=== PATIENT | male | born 1955 | race African-American/Black ===

== ENCOUNTER 2017-09-11 08:57 | Emergency (ER) | payer MEDICARE, OTHER ==
[2017-09-11] MEDS: KETOROLAC 15 MG INJ IV (09:54)
[2017-09-11] MEDS: SOD CHLORIDE 0.9% 1,000 ML IV (09:54)
[2017-09-11] MEDS: PROCHLORPERAZINE 10 MG INJ IV (10:07)
[2017-09-11 10:12] LABS: ADD MAN DIFF? NO
[2017-09-11 10:18] LABS: WHITE BLOOD COUNT 14.7 10^3/ul (4.8-10.8)
[2017-09-11 10:18] LABS: BASOPHILS % 0.3 % (0.0-2.0); HEMATOCRIT 51.8 % (42.0-52.0); HEMOGLOBIN 17.5 g/dl (14.0-18.0); LYMPHOCYTES # 0.7 10^3/ul (0.8-2.9); LYMPHOCYTES % 4.5 % (15.0-51.0); MEAN CORPUSCULAR HEMOGLOBIN 28.1 pg (29.0-33.0); MEAN CORPUSCULAR HGB CONC 33.8 g/dl (32.0-37.0); MEAN CORPUSCULAR VOLUME 83.1 fl (82.0-101.0); MEAN PLATELET VOLUME 11.1 fl (7.4-10.4); MONOCYTE # 1.4 10^3/ul (0.3-0.9); MONOCYTES % 9.5 % (0.0-11.0); NEUTROPHIL # 12.5 10^3/ul (1.6-7.5); NEUTROPHILS % 85.2 % (39.0-77.0); PLATELET COUNT 247 10^3/UL (140-415); RED BLOOD COUNT 6.23 10^6/ul (4.70-6.10); RED CELL DISTRIBUTION WIDTH 15.9 % (11.5-14.5)
[2017-09-11 10:42] LABS: ALANINE AMINOTRANSFERASE 18 IU/L (13-69); ALBUMIN 4.9 g/dl (3.3-4.9); ALBUMIN/GLOBULIN RATIO 0.89; ALKALINE PHOSPHATASE 112 IU/L (42-121); ASPARTATE AMINO TRANSFERASE 21 IU/L (15-46); BILIRUBIN,INDIRECT 0.5 mg/dl (0-1.1); BILIRUBIN,TOTAL 0.5 mg/dl (0.2-1.3); BLOOD UREA NITROGEN 21 mg/dl (7-20); CALCIUM 10.8 mg/dl (8.4-10.2); CARBON DIOXIDE 37 mmol/L (21-31); CHLORIDE 90 mmol/L (97-110); CREATININE 1.61 mg/dl (0.61-1.24); GLUCOSE 185 mg/dl (70-220); LIPASE 470 U/L (23-300); SODIUM 146 mmol/L (135-144); TOTAL PROTEIN 10.4 g/dl (6.1-8.1)
[2017-09-11 10:47] LABS: ANION GAP 23 (8-16); POTASSIUM 4.1 mmol/L (3.5-5.1)
[2017-09-11 10:51] LABS: TROPONIN-I < 0.012 ng/ml (0.00-0.12)
== END 2017-09-11 13:01 | disposition home or self-care (01) ==
LOC: E/R 08:57
DX: K80.50 Calculus of bile duct without cholangitis or cholecystitis without obstruction (principal); R06.6 Hiccough; G89.4 Chronic pain syndrome; I10 Essential (primary) hypertension; F17.210 Nicotine dependence, cigarettes, uncomplicated; Z79.82 Long term (current) use of aspirin
CPT/HCPCS: 36415; 80053; 83690; 84484; 85025; 96374; 96375; 99284-25

== ENCOUNTER 2017-09-12 13:21 | Emergency (ER) | payer MEDICARE, OTHER ==
[2017-09-12] MEDS: CHLORPROMAZINE 25 MG INJ IM (15:34)
== END 2017-09-12 16:38 | disposition home or self-care (01) ==
LOC: E/R 13:21
DX: R06.6 Hiccough (principal); R40.2252 Coma scale, best verbal response, oriented, at arrival to emergency department; R40.2142 Coma scale, eyes open, spontaneous, at arrival to emergency department; R40.2362 Coma scale, best motor response, obeys commands, at arrival to emergency department; F17.210 Nicotine dependence, cigarettes, uncomplicated; Z79.82 Long term (current) use of aspirin
CPT/HCPCS: 96372; 99284-25

== ENCOUNTER 2017-10-03 12:27 | Emergency (ER) | payer MEDICARE, OTHER ==
[2017-10-03] MEDS ORDERED: morphine 4 MG/ML VIAL IV (16:12)
[2017-10-03] MEDS: SOD CHLORIDE 0.9% 1,000 ML IV ×2 (16:23→20:31)
[2017-10-03] MEDS: ONDANSETRON 4 MG INJ IV ×2 (16:23→20:28)
[2017-10-03] MEDS: HYDROmorphONE 1 MG/5 ML IV SYRINGE IV ×2 (16:26→20:28)
[2017-10-03 16:32] LABS: ADD MAN DIFF? NO
[2017-10-03 16:35] LABS: WHITE BLOOD COUNT 13.8 10^3/ul (4.8-10.8)
[2017-10-03 16:35] LABS: BASOPHILS % 0.3 % (0.0-2.0); HEMATOCRIT 41.7 % (42.0-52.0); HEMOGLOBIN 13.8 g/dl (14.0-18.0); LYMPHOCYTES % 5.9 % (15.0-51.0); MEAN CORPUSCULAR HGB CONC 33.1 g/dl (32.0-37.0); MEAN CORPUSCULAR VOLUME 84.6 fl (82.0-101.0); MEAN PLATELET VOLUME 10.6 fl (7.4-10.4); MONOCYTE # 0.4 10^3/ul (0.3-0.9); MONOCYTES % 3.2 % (0.0-11.0); NEUTROPHIL # 12.4 10^3/ul (1.6-7.5); PLATELET COUNT 232 10^3/UL (140-415); POSITIVE DIFF @See below; RED BLOOD COUNT 4.93 10^6/ul (4.70-6.10); RED CELL DISTRIBUTION WIDTH 14.2 % (11.5-14.5)
[2017-10-03 16:57] LABS: ALANINE AMINOTRANSFERASE 41 IU/L (13-69); ALBUMIN 3.9 g/dl (3.3-4.9); ALBUMIN/GLOBULIN RATIO 0.86; ALKALINE PHOSPHATASE 208 IU/L (42-121); AMYLASE 70 U/L (11-123); ANION GAP 17 (8-16); ASPARTATE AMINO TRANSFERASE 38 IU/L (15-46); BILIRUBIN,INDIRECT 1.2 mg/dl (0-1.1); BILIRUBIN,TOTAL 1.2 mg/dl (0.2-1.3); BLOOD UREA NITROGEN 18 mg/dl (7-20); CALCIUM 9.4 mg/dl (8.4-10.2); CARBON DIOXIDE 28 mmol/L (21-31); CHLORIDE 96 mmol/L (97-110); CREATININE 1.99 mg/dl (0.61-1.24); GLUCOSE 129 mg/dl (70-220); LIPASE 116 U/L (23-300); POTASSIUM 4.1 mmol/L (3.5-5.1); SODIUM 137 mmol/L (135-144); TOTAL PROTEIN 8.4 g/dl (6.1-8.1)
[2017-10-03 17:07] LABS: PT RATIO 1.2
[2017-10-03] MEDS: CHLORPROMAZINE 25 MG INJ IM (17:07)
[2017-10-03 17:08] LABS: PARTIAL THROMBOPLASTIN TIME 34.4 Sec (25.0-35.0)
[2017-10-03 17:12] LABS: TROPONIN-I < 0.012 ng/ml (0.000-0.120)
[2017-10-03 17:19] LABS: BAND NEUTROPHILS #M 0.6 10^3/ul (0.0-0.6); BAND NEUTROPHILS % (M) 5 % (0-4); LYMPHOCYTES # 0.4 10^3/ul (0.8-2.9); LYMPHOCYTES #M 0.4 10^3/ul (0.8-2.9); LYMPHOCYTES % (M) 3 % (15-51); MONOCYTE #M 0.4 10^3/ul (0.3-0.9); MONOCYTES % (M) 3 % (0-11); SEGMENTED NEUTROPHILS (M) % 89 % (39-77)
[2017-10-03 17:42] LABS: INR 1.16
[2017-10-03 18:42] LABS: ADD UMIC YES; UR ASCORBIC ACID 40 mg/dL (NEGATIVE); UR BILIRUBIN (Dip) NEGATIVE (NEGATIVE); UR BLOOD (Dip) 1+ mg/dL (NEGATIVE); UR CLARITY CLOUDY (CLEAR); UR COLOR AMBER (YELLOW); UR GLUCOSE (Dip) NEGATIVE (NEGATIVE); UR KETONES (Dip) TRACE mg/dL (NEGATIVE); UR LEUKOCYTE ESTERASE (Dip) NEGATIVE Leu/ul (NEGATIVE); UR MUCUS FEW /HPF (NONE SEEN); UR NITRITE (Dip) NEGATIVE (NEGATIVE); UR RBC 17 /HPF (0-5); UR SPECIFIC GRAVITY (Dip) 1.019 (1.003-1.030); UR TOTAL PROTEIN (Dip) 2+ mg/dl (NEGATIVE); UR UROBILINOGEN (Dip) 2+ mg/dL (NEGATIVE); UR WBC 7 /HPF (0-5)
== END 2017-10-03 21:44 | disposition home or self-care (01) ==
LOC: E/R 12:27
DX: R10.13 Epigastric pain (principal); R06.6 Hiccough; F17.210 Nicotine dependence, cigarettes, uncomplicated; Z79.82 Long term (current) use of aspirin
CPT/HCPCS: 36415; 71045; 80053; 81001; 82150; 83690; 84484; 85025; 85610; 85730; 87086; 96372; 96374; 96375; 96376; 99285-25

== ENCOUNTER 2017-10-09 11:58 | Inpatient (IN) | payer MEDICARE, OTHER ==
[2017-10-09] MEDS: FAMOTIDINE 20 MG INJ IV (15:49)
[2017-10-09] MEDS: ONDANSETRON 4 MG INJ IV (15:49)
[2017-10-09] MEDS: morphine 4 MG/ML VIAL IV (15:49)
[2017-10-09 16:31] LABS: ADD MAN DIFF? NO
[2017-10-09 16:35] LABS: ABNORMAL IP MESSAGE 1; BASOPHIL # 0.1 10^3/ul (0.0-0.1); BASOPHILS % 0.5 % (0.0-2.0); EOSINOPHILS # 0.1 10^3/ul (0.0-0.5); EOSINOPHILS % 0.3 % (0.0-7.0); HEMOGLOBIN 11.8 g/dl (14.0-18.0); LYMPHOCYTES # 1.4 10^3/ul (0.8-2.9); LYMPHOCYTES % 5.9 % (15.0-51.0); MEAN CORPUSCULAR HGB CONC 33.7 g/dl (32.0-37.0); MEAN CORPUSCULAR VOLUME 83.1 fl (82.0-101.0); MEAN PLATELET VOLUME 9.4 fl (7.4-10.4); MONOCYTE # 1.7 10^3/ul (0.3-0.9); MONOCYTES % 7.2 % (0.0-11.0); NEUTROPHIL # 19.3 10^3/ul (1.6-7.5); NEUTROPHILS % 83.9 % (39.0-77.0); PLATELET COUNT 401 10^3/UL (140-415); POSITIVE DIFF @See below; RED BLOOD COUNT 4.21 10^6/ul (4.70-6.10); RED CELL DISTRIBUTION WIDTH 14.2 % (11.5-14.5)
[2017-10-09 16:43] LABS: ADD UMIC YES; UR ASCORBIC ACID 40 mg/dL (NEGATIVE); UR BILIRUBIN (Dip) NEGATIVE (NEGATIVE); UR BLOOD (Dip) 2+ mg/dL (NEGATIVE); UR CLARITY CLEAR (CLEAR); UR COLOR YELLOW (YELLOW); UR GLUCOSE (Dip) NEGATIVE (NEGATIVE); UR KETONES (Dip) NEGATIVE (NEGATIVE); UR LEUKOCYTE ESTERASE (Dip) NEGATIVE Leu/ul (NEGATIVE); UR NITRITE (Dip) NEGATIVE (NEGATIVE); UR RBC 21 /HPF (0-5); UR TOTAL PROTEIN (Dip) 2+ mg/dl (NEGATIVE); UR UROBILINOGEN (Dip) NEGATIVE (NEGATIVE); UR WBC 3 /HPF (0-5)
[2017-10-09 16:54] LABS: ALANINE AMINOTRANSFERASE 42 IU/L (13-69); ALBUMIN 3.3 g/dl (3.3-4.9); ALBUMIN/GLOBULIN RATIO 0.73; ALKALINE PHOSPHATASE 239 IU/L (42-121); ANION GAP 15 (8-16); ASPARTATE AMINO TRANSFERASE 28 IU/L (15-46); BILIRUBIN,INDIRECT 0.4 mg/dl (0-1.1); BILIRUBIN,TOTAL 0.4 mg/dl (0.2-1.3); BLOOD UREA NITROGEN 16 mg/dl (7-20); CALCIUM 8.8 mg/dl (8.4-10.2); CARBON DIOXIDE 31 mmol/L (21-31); CHLORIDE 100 mmol/L (97-110); CREATININE 1.47 mg/dl (0.61-1.24); GLUCOSE 122 mg/dl (70-220); LIPASE 400 U/L (23-300); POTASSIUM 3.9 mmol/L (3.5-5.1); SODIUM 142 mmol/L (135-144); TOTAL PROTEIN 7.8 g/dl (6.1-8.1)
[2017-10-09] MEDS: HYDROmorphONE 1 MG/5 ML IV SYRINGE IV (17:59)
[2017-10-09] MEDS: SOD CHLORIDE 0.9% 1,000 ML IV ×3 (18:59→23:47)
[2017-10-09] MEDS: PIPER-TAZO 3.375 GM IV (PMX) 100 ML IVPB (18:59)
[2017-10-09] MEDS ORDERED: ONDANSETRON 4 MG INJ IV (20:00)
[2017-10-09] MEDS ORDERED: ACETAMINOPHEN 325 MG TAB PO (20:00)
[2017-10-09] MEDS: HYDROmorphONE 0.5 MG/0.5 ML SYG IV (21:56)
[2017-10-10] MEDS: HYDROmorphONE 0.5 MG/0.5 ML SYG IV ×5 (02:39→19:55)
[2017-10-10 05:14] LABS: ADD MAN DIFF? NO
[2017-10-10 05:19] LABS: WHITE BLOOD COUNT 22.4 10^3/ul (4.8-10.8)
[2017-10-10 05:19] LABS: BASOPHIL # 0.1 10^3/ul (0.0-0.1); BASOPHILS % 0.6 % (0.0-2.0); EOSINOPHILS # 0.1 10^3/ul (0.0-0.5); EOSINOPHILS % 0.5 % (0.0-7.0); HEMATOCRIT 35.1 % (42.0-52.0); HEMOGLOBIN 11.7 g/dl (14.0-18.0); LYMPHOCYTES # 1.5 10^3/ul (0.8-2.9); LYMPHOCYTES % 6.7 % (15.0-51.0); MEAN CORPUSCULAR HEMOGLOBIN 27.7 pg (29.0-33.0); MEAN CORPUSCULAR HGB CONC 33.3 g/dl (32.0-37.0); MEAN CORPUSCULAR VOLUME 83.2 fl (82.0-101.0); MEAN PLATELET VOLUME 9.9 fl (7.4-10.4); MONOCYTE # 1.4 10^3/ul (0.3-0.9); MONOCYTES % 6.4 % (0.0-11.0); NEUTROPHIL # 18.6 10^3/ul (1.6-7.5); NEUTROPHILS % 83.3 % (39.0-77.0); PLATELET COUNT 423 10^3/UL (140-415); RED BLOOD COUNT 4.22 10^6/ul (4.70-6.10); RED CELL DISTRIBUTION WIDTH 14.5 % (11.5-14.5)
[2017-10-10 05:47] LABS: ANION GAP 16 (8-16); BLOOD UREA NITROGEN 14 mg/dl (7-20); CALCIUM 8.4 mg/dl (8.4-10.2); CARBON DIOXIDE 24 mmol/L (21-31); CHLORIDE 106 mmol/L (97-110); CREATININE 1.38 mg/dl (0.61-1.24); GLUCOSE 93 mg/dl (70-220); POTASSIUM 4.1 mmol/L (3.5-5.1); SODIUM 142 mmol/L (135-144)
[2017-10-10] MEDS: CIPROFLOXACIN 400MG/D5W 200 ML IVPB (11:24)
[2017-10-10 12:47] LABS: CANCER ANTIGEN 19-9 < 1.4 U/ml (0.0-37.0)
[2017-10-10] MEDS: SOD CHLORIDE 0.9% 1,000 ML IV (13:24)
[2017-10-10] MEDS: metroNIDAZOLE 500 MG/NS (PMX) 250 MG in EVAC CONTAINER 1 BOTTLE IVPB ×2 (13:25→21:30)
[2017-10-10 13:53] LABS: CARCINOEMBRYONIC ANTIGEN 1.5 ng/ml (0.0-5.0)
[2017-10-10 13:58] LABS: ALPHA FETOPROTEIN 0.86 IU/L (0.00-7.21)
[2017-10-10] MEDS: MIDAZOLAM 1 MG/ML 2 ML INJ (14:30)
[2017-10-10] MEDS: FENTAnyl 50 MCG/ML VIAL (14:30)
[2017-10-10] MEDS: SOD CHLORIDE 0.9% 500 ML (14:30)
[2017-10-10] MEDS: LIDOCAINE 1% (MDV) 10 ML INJ (14:35)
[2017-10-10] MEDS: HYDROmorphONE 2 MG/ML SYG IV (23:38)
[2017-10-11] MEDS: HYDROmorphONE 2 MG/ML SYG IV ×5 (03:28→19:23)
[2017-10-11] MEDS: SOD CHLORIDE 0.9% 1,000 ML IV ×3 (03:32→16:00)
[2017-10-11] MEDS: metroNIDAZOLE 500 MG/NS (PMX) 250 MG in EVAC CONTAINER 1 BOTTLE IVPB ×3 (06:29→23:54)
[2017-10-11] MEDS: CIPROFLOXACIN 400MG/D5W 200 ML IVPB (10:48)
[2017-10-11 13:59] LABS: ADD MAN DIFF? NO
[2017-10-11 14:06] LABS: BASOPHIL # 0.1 10^3/ul (0.0-0.1); BASOPHILS % 0.6 % (0.0-2.0); EOSINOPHILS # 0.1 10^3/ul (0.0-0.5); EOSINOPHILS % 0.8 % (0.0-7.0); HEMATOCRIT 34.8 % (42.0-52.0); HEMOGLOBIN 11.3 g/dl (14.0-18.0); LYMPHOCYTES # 1.5 10^3/ul (0.8-2.9); LYMPHOCYTES % 11.6 % (15.0-51.0); MEAN CORPUSCULAR HEMOGLOBIN 27.7 pg (29.0-33.0); MEAN CORPUSCULAR HGB CONC 32.5 g/dl (32.0-37.0); MEAN CORPUSCULAR VOLUME 85.3 fl (82.0-101.0); MEAN PLATELET VOLUME 9.4 fl (7.4-10.4); MONOCYTES % 8.2 % (0.0-11.0); NEUTROPHIL # 9.7 10^3/ul (1.6-7.5); NEUTROPHILS % 76.3 % (39.0-77.0); PLATELET COUNT 581 10^3/UL (140-415); RED BLOOD COUNT 4.08 10^6/ul (4.70-6.10); RED CELL DISTRIBUTION WIDTH 15.2 % (11.5-14.5)
[2017-10-11 14:06] LABS: WHITE BLOOD COUNT 12.8 10^3/ul (4.8-10.8)
[2017-10-11 14:24] LABS: LIPASE 177 U/L (23-300)
[2017-10-11 14:26] LABS: ALANINE AMINOTRANSFERASE 34 IU/L (13-69); ALBUMIN 2.9 g/dl (3.3-4.9); ALKALINE PHOSPHATASE 194 IU/L (42-121); ANION GAP 12 (8-16); ASPARTATE AMINO TRANSFERASE 31 IU/L (15-46); BILIRUBIN,INDIRECT 0.2 mg/dl (0-1.1); BILIRUBIN,TOTAL 0.2 mg/dl (0.2-1.3); BLOOD UREA NITROGEN 12 mg/dl (7-20); CALCIUM 8.1 mg/dl (8.4-10.2); CARBON DIOXIDE 24 mmol/L (21-31); CHLORIDE 110 mmol/L (97-110); CREATININE 1.21 mg/dl (0.61-1.24); GLUCOSE 87 mg/dl (70-220); POTASSIUM 4.1 mmol/L (3.5-5.1); SODIUM 142 mmol/L (135-144)
[2017-10-12] MEDS: HYDROmorphONE 2 MG/ML SYG IV ×4 (00:06→12:54)
[2017-10-12] MEDS: SOD CHLORIDE 0.9% 1,000 ML IV ×2 (02:39→21:10)
[2017-10-12] MEDS: ENOXAPARIN 80 MG/0.8 ML SYG SC (02:41)
[2017-10-12 05:24] LABS: ADD MAN DIFF? NO
[2017-10-12 05:27] LABS: WHITE BLOOD COUNT 9.8 10^3/ul (4.8-10.8)
[2017-10-12 05:27] LABS: BASOPHIL # 0.1 10^3/ul (0.0-0.1); BASOPHILS % 0.6 % (0.0-2.0); EOSINOPHILS # 0.1 10^3/ul (0.0-0.5); EOSINOPHILS % 1.1 % (0.0-7.0); HEMATOCRIT 35.6 % (42.0-52.0); HEMOGLOBIN 11.8 g/dl (14.0-18.0); LYMPHOCYTES # 1.3 10^3/ul (0.8-2.9); LYMPHOCYTES % 13.2 % (15.0-51.0); MEAN CORPUSCULAR HEMOGLOBIN 27.7 pg (29.0-33.0); MEAN CORPUSCULAR HGB CONC 33.1 g/dl (32.0-37.0); MEAN CORPUSCULAR VOLUME 83.6 fl (82.0-101.0); MEAN PLATELET VOLUME 9.2 fl (7.4-10.4); MONOCYTE # 0.9 10^3/ul (0.3-0.9); MONOCYTES % 8.7 % (0.0-11.0); NEUTROPHIL # 7.2 10^3/ul (1.6-7.5); NEUTROPHILS % 73.8 % (39.0-77.0); PLATELET COUNT 679 10^3/UL (140-415); RED BLOOD COUNT 4.26 10^6/ul (4.70-6.10); RED CELL DISTRIBUTION WIDTH 14.9 % (11.5-14.5)
[2017-10-12 06:06] LABS: ALANINE AMINOTRANSFERASE 29 IU/L (13-69); ALBUMIN/GLOBULIN RATIO 0.71; ALKALINE PHOSPHATASE 193 IU/L (42-121); AMYLASE 139 U/L (11-123); ANION GAP 11 (8-16); ASPARTATE AMINO TRANSFERASE 25 IU/L (15-46); BILIRUBIN,INDIRECT 0.2 mg/dl (0-1.1); BILIRUBIN,TOTAL 0.2 mg/dl (0.2-1.3); BLOOD UREA NITROGEN 8 mg/dl (7-20); CALCIUM 8.2 mg/dl (8.4-10.2); CARBON DIOXIDE 28 mmol/L (21-31); CHLORIDE 108 mmol/L (97-110); CREATININE 1.06 mg/dl (0.61-1.24); GLUCOSE 137 mg/dl (70-220); LIPASE 481 U/L (23-300); SODIUM 143 mmol/L (135-144); TOTAL PROTEIN 7.2 g/dl (6.1-8.1)
[2017-10-12] MEDS: metroNIDAZOLE 500 MG/NS (PMX) 250 MG in EVAC CONTAINER 1 BOTTLE IVPB ×3 (06:26→22:14)
[2017-10-12] MEDS: CIPROFLOXACIN 400MG/D5W 200 ML IVPB (11:34)
[2017-10-12] MEDS ORDERED: IOHEXOL 14.3 MG(I)/ML (ADULT) BTL PO (13:30)
[2017-10-12] MEDS ORDERED: HYDROCODONE/APAP (5/325) TAB PO (13:30)
[2017-10-12] MEDS: HYDROCODONE/APAP (5/325) TAB PO ×2 (15:12→21:08)
[2017-10-12] MEDS: HYDROmorphONE 0.5 MG/0.5 ML SYG IV ×2 (17:30→22:13)
[2017-10-13] MEDS: ENOXAPARIN 80 MG/0.8 ML SYG SC (01:14)
[2017-10-13] MEDS: HYDROCODONE/APAP (5/325) TAB PO ×3 (03:04→15:45)
[2017-10-13] MEDS: ONDANSETRON 4 MG INJ IV ×2 (03:12→11:06)
[2017-10-13] MEDS: HYDROmorphONE 0.5 MG/0.5 ML SYG IV ×2 (04:27→10:07)
[2017-10-13] MEDS: metroNIDAZOLE 500 MG/NS (PMX) 250 MG in EVAC CONTAINER 1 BOTTLE IVPB (05:24)
[2017-10-13 05:48] LABS: ADD MAN DIFF? NO
[2017-10-13] MEDS: SOD CHLORIDE 0.9% 1,000 ML IV ×2 (06:00→09:34)
[2017-10-13 06:06] LABS: BASOPHIL # 0.1 10^3/ul (0.0-0.1); BASOPHILS % 0.7 % (0.0-2.0); EOSINOPHILS # 0.1 10^3/ul (0.0-0.5); EOSINOPHILS % 0.9 % (0.0-7.0); HEMATOCRIT 33.8 % (42.0-52.0); HEMOGLOBIN 11.1 g/dl (14.0-18.0); LYMPHOCYTES # 1.2 10^3/ul (0.8-2.9); LYMPHOCYTES % 15.7 % (15.0-51.0); MEAN CORPUSCULAR HEMOGLOBIN 27.4 pg (29.0-33.0); MEAN CORPUSCULAR HGB CONC 32.8 g/dl (32.0-37.0); MEAN CORPUSCULAR VOLUME 83.5 fl (82.0-101.0); MEAN PLATELET VOLUME 9.5 fl (7.4-10.4); MONOCYTE # 0.7 10^3/ul (0.3-0.9); MONOCYTES % 8.8 % (0.0-11.0); NEUTROPHIL # 5.3 10^3/ul (1.6-7.5); NEUTROPHILS % 71.5 % (39.0-77.0); PLATELET COUNT 699 10^3/UL (140-415); RED BLOOD COUNT 4.05 10^6/ul (4.70-6.10)
[2017-10-13 06:06] LABS: WHITE BLOOD COUNT 7.4 10^3/ul (4.8-10.8)
[2017-10-13 06:27] LABS: ALANINE AMINOTRANSFERASE 24 IU/L (13-69); ALBUMIN 2.4 g/dl (3.3-4.9); ALBUMIN/GLOBULIN RATIO 0.63; ALKALINE PHOSPHATASE 144 IU/L (42-121); ANION GAP 11 (8-16); ASPARTATE AMINO TRANSFERASE 37 IU/L (15-46); BILIRUBIN,INDIRECT 0.2 mg/dl (0-1.1); BILIRUBIN,TOTAL 0.2 mg/dl (0.2-1.3); BLOOD UREA NITROGEN 3 mg/dl (7-20); CALCIUM 7.7 mg/dl (8.4-10.2); CARBON DIOXIDE 27 mmol/L (21-31); CHLORIDE 109 mmol/L (97-110); CREATININE 0.94 mg/dl (0.61-1.24); GLUCOSE 105 mg/dl (70-220); LIPASE 379 U/L (23-300); POTASSIUM 3.7 mmol/L (3.5-5.1); SODIUM 143 mmol/L (135-144); TOTAL PROTEIN 6.2 g/dl (6.1-8.1)
[2017-10-13 06:33] LABS: AMYLASE 92 U/L (11-123)
[2017-10-13 07:21] LABS: ERYTHROCYTE SEDIMENTATION RATE 46 mm/Hr (0-20)
[2017-10-13] MEDS: SOD CHLORIDE 0.9% 100 ML (08:51)
[2017-10-13] MEDS: IOHEXOL 300MG/ML 150 ML BTL (08:53)
[2017-10-13] MEDS ORDERED: IOHEXOL 14.3 MG(I)/ML (ADULT) BTL PO (09:00)
[2017-10-13] MEDS: CIPROFLOXACIN 400MG/D5W 200 ML IVPB (11:00)
[2017-10-13] MEDS: D5-NS + KCL 20 MEQ 1,000 ML IV ×2 (11:01→20:00)
[2017-10-13] MEDS: CALCIUM GLUCONATE 10% 2 GM in DEXTROSE 5% 100 ML IVPB (11:30)
[2017-10-13] MEDS: LIDOCAINE 1% (MPF) 5 ML VIAL SC (14:30)
[2017-10-13] MEDS ORDERED: HYDROmorphONE 0.5 MG/0.5 ML SYG IV (15:30)
[2017-10-13] MEDS: HYDROmorphONE 2 MG TAB PO (20:14)
[2017-10-13] MEDS: metroNIDAZOLE 500 MG TAB PO (21:52)
[2017-10-14] MEDS: HYDROCODONE/APAP (5/325) TAB PO (00:02)
[2017-10-14] MEDS: PANTOPRAZOLE 40 MG INJ IV (05:32)
[2017-10-14] MEDS: D5-NS + KCL 20 MEQ 1,000 ML IV ×2 (06:00→16:00)
[2017-10-14] MEDS: metroNIDAZOLE 500 MG TAB PO (06:06)
[2017-10-14 07:31] LABS: ADD UMIC YES; UR ASCORBIC ACID NEGATIVE (NEGATIVE); UR BACTERIA FEW /HPF (NONE SEEN); UR BILIRUBIN (Dip) NEGATIVE (NEGATIVE); UR BLOOD (Dip) 1+ mg/dL (NEGATIVE); UR CLARITY CLEAR (CLEAR); UR COLOR YELLOW (YELLOW); UR GLUCOSE (Dip) NEGATIVE (NEGATIVE); UR KETONES (Dip) TRACE mg/dL (NEGATIVE); UR LEUKOCYTE ESTERASE (Dip) NEGATIVE Leu/ul (NEGATIVE); UR NITRITE (Dip) NEGATIVE (NEGATIVE); UR RBC 4 /HPF (0-5); UR SPECIFIC GRAVITY (Dip) 1.013 (1.003-1.030); UR TOTAL PROTEIN (Dip) NEGATIVE (NEGATIVE); UR UROBILINOGEN (Dip) NEGATIVE (NEGATIVE); UR WBC 3 /HPF (0-5)
[2017-10-14] MEDS: ENOXAPARIN 80 MG/0.8 ML SYG SC (07:42)
[2017-10-14] MEDS: HYDROmorphONE 2 MG/ML SYG IV ×3 (11:26→18:32)
[2017-10-14] MEDS: CIPROFLOXACIN 400MG/D5W 200 ML IVPB (12:05)
[2017-10-14] MEDS: ONDANSETRON 4 MG INJ IV (12:12)
[2017-10-14] MEDS: metroNIDAZOLE 500 MG/NS (PMX) 250 MG in EVAC CONTAINER 1 BOTTLE IVPB ×3 (16:32→22:34)
[2017-10-14] MEDS: CALCIUM GLUCONATE 10% 2 GM in DEXTROSE 5% 100 ML IVPB (18:32)
[2017-10-14 19:03] LABS: WHITE BLOOD COUNT 10.8 10^3/ul (4.8-10.8)
[2017-10-14 19:03] LABS: HEMATOCRIT 34.5 % (42.0-52.0); HEMOGLOBIN 11.6 g/dl (14.0-18.0); MEAN CORPUSCULAR HEMOGLOBIN 27.6 pg (29.0-33.0); MEAN CORPUSCULAR HGB CONC 33.6 g/dl (32.0-37.0); MEAN CORPUSCULAR VOLUME 82.1 fl (82.0-101.0); MEAN PLATELET VOLUME 9.1 fl (7.4-10.4); PLATELET COUNT 821 10^3/UL (140-415); RED CELL DISTRIBUTION WIDTH 15.3 % (11.5-14.5)
[2017-10-14 19:11] LABS: ADD MAN DIFF? YES
[2017-10-14 19:25] LABS: AMYLASE 85 U/L (11-123)
[2017-10-14 19:25] LABS: ANION GAP 13 (8-16); BLOOD UREA NITROGEN 2 mg/dl (7-20); CALCIUM 8.3 mg/dl (8.4-10.2); CARBON DIOXIDE 29 mmol/L (21-31); CHLORIDE 103 mmol/L (97-110); CREATININE 0.99 mg/dl (0.61-1.24); GLUCOSE 108 mg/dl (70-220); LIPASE 165 U/L (23-300); POTASSIUM 3.2 mmol/L (3.5-5.1); SODIUM 142 mmol/L (135-144)
[2017-10-14 19:57] LABS: BURR CELLS 1+ (0-0); GIANT THROMBO% (M) 2 % (0-0); LYMPHOCYTES #M 0.5 10^3/ul (0.8-2.9); LYMPHOCYTES % (M) 5 % (15-51); MONOCYTE #M 0.5 10^3/ul (0.3-0.9); MONOCYTES % (M) 5 % (0-11); PLATELET ESTIMATE INCREASED; POIKILOCYTOSIS 1+ (0-0); POLYCHROMASIA 3+ (0-0); SEGMENTED NEUTROPHILS (M) % 90 % (39-77); SMUDGE%M 2 % (0-0)
[2017-10-14] MEDS: HYDROmorphONE 1 MG/ML SYG IV (22:31)
[2017-10-15] MEDS: ONDANSETRON 4 MG INJ IV (00:14)
[2017-10-15] MEDS: HYDROmorphONE 1 MG/ML SYG IV ×5 (03:42→20:56)
[2017-10-15] MEDS: PANTOPRAZOLE 40 MG INJ IV (05:28)
[2017-10-15] MEDS: D5-NS + KCL 20 MEQ 1,000 ML IV ×3 (05:29→19:26)
[2017-10-15] MEDS: metroNIDAZOLE 500 MG/NS (PMX) 250 MG in EVAC CONTAINER 1 BOTTLE IVPB ×2 (05:29→14:44)
[2017-10-15] MEDS: TAMSULOSIN (SR) 0.4 MG CAP PO ×2 (05:32→20:55)
[2017-10-15] MEDS: ENOXAPARIN 80 MG/0.8 ML SYG SC ×2 (09:00→10:29)
[2017-10-15] MEDS: DIATR MEGLU/DIATRIZOATE SODIUM 120 ML BTL (10:57)
[2017-10-15] MEDS: CIPROFLOXACIN 400MG/D5W 200 ML IVPB (12:12)
[2017-10-15] MEDS: POTASSIUM CHLORIDE (SR) 20 MEQ TAB PO (16:28)
[2017-10-15] MEDS: METOPROLOL (XL) 25 MG TAB PO (16:29)
[2017-10-15] MEDS: CALCIUM CARBONATE 750 MG CHEW TAB PO (18:55)
[2017-10-16] MEDS: HYDROmorphONE 1 MG/ML SYG IV ×6 (00:37→22:14)
[2017-10-16] MEDS: metroNIDAZOLE 500 MG/NS (PMX) 250 MG in EVAC CONTAINER 1 BOTTLE IVPB ×4 (00:44→21:49)
[2017-10-16] MEDS: PANTOPRAZOLE 40 MG INJ IV (05:42)
[2017-10-16] MEDS: MULTIVITAMINS THERAPEUTIC TAB PO (08:14)
[2017-10-16] MEDS: METOPROLOL (XL) 25 MG TAB PO (08:14)
[2017-10-16] MEDS: CALCIUM CARBONATE 750 MG CHEW TAB PO ×3 (08:50→18:55)
[2017-10-16] MEDS: ENOXAPARIN 80 MG/0.8 ML SYG SC (09:00)
[2017-10-16] MEDS: D5-NS + KCL 20 MEQ 1,000 ML IV ×2 (09:52→22:49)
[2017-10-16] MEDS: CIPROFLOXACIN 400MG/D5W 200 ML IVPB (11:06)
[2017-10-16] MEDS: OXYBUTYNIN 5 MG TAB PO ×2 (11:06→20:43)
[2017-10-16] MEDS: FINASTERIDE 5 MG TAB PO (17:47)
[2017-10-16] MEDS: BUSPIRONE 5 MG TAB PO (20:43)
[2017-10-16] MEDS: DILTIAZEM 30 MG TAB PO (20:43)
[2017-10-17] MEDS: HYDROmorphONE 1 MG/ML SYG IV ×6 (02:23→23:50)
[2017-10-17 05:03] LABS: ADD MAN DIFF? NO
[2017-10-17 05:04] LABS: WHITE BLOOD COUNT 6.6 10^3/ul (4.8-10.8)
[2017-10-17 05:04] LABS: BASOPHILS % 0.5 % (0.0-2.0); EOSINOPHILS # 0.2 10^3/ul (0.0-0.5); EOSINOPHILS % 2.3 % (0.0-7.0); HEMATOCRIT 32.1 % (42.0-52.0); HEMOGLOBIN 10.6 g/dl (14.0-18.0); LYMPHOCYTES # 1.5 10^3/ul (0.8-2.9); LYMPHOCYTES % 21.9 % (15.0-51.0); MEAN CORPUSCULAR HEMOGLOBIN 27.7 pg (29.0-33.0); MEAN CORPUSCULAR VOLUME 83.8 fl (82.0-101.0); MEAN PLATELET VOLUME 9.3 fl (7.4-10.4); MONOCYTES % 14.7 % (0.0-11.0); NEUTROPHIL # 3.9 10^3/ul (1.6-7.5); NEUTROPHILS % 59.4 % (39.0-77.0); PLATELET COUNT 678 10^3/UL (140-415); RED BLOOD COUNT 3.83 10^6/ul (4.70-6.10); RED CELL DISTRIBUTION WIDTH 15.8 % (11.5-14.5)
[2017-10-17 05:25] LABS: ALBUMIN 2.7 g/dl (3.3-4.9); ANION GAP 13 (8-16); CALCIUM 8.6 mg/dl (8.4-10.2); CARBON DIOXIDE 28 mmol/L (21-31); CHLORIDE 111 mmol/L (97-110); CREATININE 0.98 mg/dl (0.61-1.24); GLUCOSE 237 mg/dl (70-220); POTASSIUM 4.7 mmol/L (3.5-5.1); SODIUM 147 mmol/L (135-144)
[2017-10-17 05:36] LABS: BLOOD UREA NITROGEN < 2 mg/dl (7-20)
[2017-10-17] MEDS: PANTOPRAZOLE 40 MG INJ IV (05:51)
[2017-10-17] MEDS: metroNIDAZOLE 500 MG/NS (PMX) 250 MG in EVAC CONTAINER 1 BOTTLE IVPB (05:51)
[2017-10-17] MEDS: BUSPIRONE 5 MG TAB PO ×2 (08:43→21:47)
[2017-10-17] MEDS: OXYBUTYNIN 5 MG TAB PO ×2 (08:43→21:47)
[2017-10-17] MEDS: DILTIAZEM 30 MG TAB PO ×3 (08:44→21:48)
[2017-10-17] MEDS: MULTIVITAMINS THERAPEUTIC TAB PO (08:44)
[2017-10-17] MEDS: FINASTERIDE 5 MG TAB PO (08:44)
[2017-10-17] MEDS: ENOXAPARIN 80 MG/0.8 ML SYG SC (08:46)
[2017-10-17] MEDS: CALCIUM CARBONATE 750 MG CHEW TAB PO ×3 (08:50→18:46)
[2017-10-17] MEDS: VANCOMYCIN 1 GM (PMX) 250 ML IVPB (11:25)
[2017-10-17] MEDS: AMPICILLIN/SULB 1.5GM/NS (PMX) 50 ML IVPB ×2 (15:29→21:47)
[2017-10-17] MEDS ORDERED: LIDOCAINE 1% (MDV) 20 ML INJ (16:16)
[2017-10-17] MEDS ORDERED: PROPOFOL 20 ML (16:16)
[2017-10-17] MEDS ORDERED: MIDAZOLAM 1 MG/ML 2 ML INJ (16:16)
[2017-10-17] MEDS ORDERED: DEXAMETHASONE 4 MG/ML 1 ML INJ (16:16)
[2017-10-17] MEDS ORDERED: ONDANSETRON 4 MG INJ (16:16)
[2017-10-17] MEDS ORDERED: SUCCINYLCHOLINE CHLORIDE 100 MG/5 ML SYG IV (16:16)
[2017-10-17] MEDS ORDERED: FENTAnyl 50 MCG/ML VIAL (16:16)
[2017-10-17] MEDS: D5-NS + KCL 20 MEQ 1,000 ML IV (17:30)
[2017-10-18] MEDS: HYDROmorphONE 1 MG/ML SYG IV ×5 (03:55→20:15)
[2017-10-18] MEDS: AMPICILLIN/SULB 1.5GM/NS (PMX) 50 ML IVPB ×3 (05:46→22:12)
[2017-10-18] MEDS: PANTOPRAZOLE 40 MG INJ IV (05:47)
[2017-10-18] MEDS: ENOXAPARIN 80 MG/0.8 ML SYG SC (09:00)
[2017-10-18] MEDS: OXYBUTYNIN 5 MG TAB PO ×2 (09:15→21:03)
[2017-10-18] MEDS: FINASTERIDE 5 MG TAB PO (09:15)
[2017-10-18] MEDS: BUSPIRONE 5 MG TAB PO ×2 (09:15→21:04)
[2017-10-18] MEDS: MULTIVITAMINS THERAPEUTIC TAB PO (09:15)
[2017-10-18] MEDS: CALCIUM CARBONATE 750 MG CHEW TAB PO ×3 (09:16→18:47)
[2017-10-18] MEDS: DILTIAZEM 30 MG TAB PO ×3 (09:16→21:03)
[2017-10-18] MEDS: D5-NS + KCL 20 MEQ 1,000 ML IV (14:00)
[2017-10-19] MEDS: HYDROmorphONE 1 MG/ML SYG IV ×6 (00:07→22:11)
[2017-10-19] MEDS: PANTOPRAZOLE 40 MG INJ IV (05:53)
[2017-10-19] MEDS: AMPICILLIN/SULB 1.5GM/NS (PMX) 50 ML IVPB ×3 (05:53→22:11)
[2017-10-19] MEDS: DILTIAZEM 30 MG TAB PO ×3 (08:19→22:10)
[2017-10-19] MEDS: FINASTERIDE 5 MG TAB PO (08:19)
[2017-10-19] MEDS: MULTIVITAMINS THERAPEUTIC TAB PO (08:19)
[2017-10-19] MEDS: BUSPIRONE 5 MG TAB PO ×2 (08:19→22:09)
[2017-10-19] MEDS: OXYBUTYNIN 5 MG TAB PO ×2 (08:19→22:09)
[2017-10-19] MEDS: CALCIUM CARBONATE 750 MG CHEW TAB PO ×3 (08:19→18:56)
[2017-10-19] MEDS: ENOXAPARIN 80 MG/0.8 ML SYG SC (08:20)
[2017-10-19] MEDS: D5-NS + KCL 20 MEQ 1,000 ML IV (09:46)
[2017-10-20] MEDS: HYDROmorphONE 1 MG/ML SYG IV ×5 (02:11→20:14)
[2017-10-20] MEDS: AMPICILLIN/SULB 1.5GM/NS (PMX) 50 ML IVPB ×3 (06:10→23:00)
[2017-10-20] MEDS: PANTOPRAZOLE 40 MG INJ IV (06:10)
[2017-10-20] MEDS: ENOXAPARIN 80 MG/0.8 ML SYG SC (09:00)
[2017-10-20] MEDS: CALCIUM CARBONATE 750 MG CHEW TAB PO ×3 (09:15→20:51)
[2017-10-20] MEDS: OXYBUTYNIN 5 MG TAB PO ×2 (09:15→20:51)
[2017-10-20] MEDS: MULTIVITAMINS THERAPEUTIC TAB PO (09:16)
[2017-10-20] MEDS: DILTIAZEM 30 MG TAB PO ×3 (09:16→20:52)
[2017-10-20] MEDS: BUSPIRONE 5 MG TAB PO ×2 (09:16→20:51)
[2017-10-20] MEDS: FINASTERIDE 5 MG TAB PO (09:16)
[2017-10-20] MEDS: D5-NS + KCL 20 MEQ 1,000 ML IV (20:59)
[2017-10-21] MEDS: HYDROmorphONE 1 MG/ML SYG IV ×5 (00:17→21:31)
[2017-10-21] MEDS: AMPICILLIN/SULB 1.5GM/NS (PMX) 50 ML IVPB ×3 (06:25→21:36)
[2017-10-21] MEDS: PANTOPRAZOLE 40 MG INJ IV (06:25)
[2017-10-21] MEDS: BUSPIRONE 5 MG TAB PO ×2 (08:35→21:37)
[2017-10-21] MEDS: CALCIUM CARBONATE 750 MG CHEW TAB PO ×2 (08:35→12:57)
[2017-10-21] MEDS: FINASTERIDE 5 MG TAB PO (08:35)
[2017-10-21] MEDS: MULTIVITAMINS THERAPEUTIC TAB PO (08:35)
[2017-10-21] MEDS: OXYBUTYNIN 5 MG TAB PO ×2 (08:35→21:39)
[2017-10-21] MEDS: ENOXAPARIN 80 MG/0.8 ML SYG SC (08:36)
[2017-10-21] MEDS: DILTIAZEM 30 MG TAB PO ×3 (08:36→21:39)
[2017-10-21] MEDS: IOHEXOL 14.3 MG(I)/ML (ADULT) BTL PO (18:30)
[2017-10-21] MEDS ORDERED: VITAMIN A & D 5 GM OINT PACKET TOP (23:32)
[2017-10-22] MEDS: HYDROmorphONE 1 MG/ML SYG IV ×6 (01:38→22:18)
[2017-10-22 05:31] LABS: ADD MAN DIFF? NO
[2017-10-22] MEDS: AMPICILLIN/SULB 1.5GM/NS (PMX) 50 ML IVPB ×3 (05:41→22:18)
[2017-10-22] MEDS: PANTOPRAZOLE 40 MG INJ IV (05:41)
[2017-10-22 05:42] LABS: BASOPHIL # 0.1 10^3/ul (0.0-0.1); BASOPHILS % 1.4 % (0.0-2.0); EOSINOPHILS # 0.2 10^3/ul (0.0-0.5); EOSINOPHILS % 2.3 % (0.0-7.0); HEMATOCRIT 37.5 % (42.0-52.0); HEMOGLOBIN 12.4 g/dl (14.0-18.0); LYMPHOCYTES # 2.2 10^3/ul (0.8-2.9); LYMPHOCYTES % 30.7 % (15.0-51.0); MEAN CORPUSCULAR HEMOGLOBIN 28.1 pg (29.0-33.0); MEAN CORPUSCULAR HGB CONC 33.1 g/dl (32.0-37.0); MEAN PLATELET VOLUME 10.6 fl (7.4-10.4); MONOCYTE # 1.3 10^3/ul (0.3-0.9); NEUTROPHIL # 3.3 10^3/ul (1.6-7.5); NEUTROPHILS % 46.3 % (39.0-77.0); PLATELET COUNT 491 10^3/UL (140-415); RED BLOOD COUNT 4.41 10^6/ul (4.70-6.10); RED CELL DISTRIBUTION WIDTH 15.8 % (11.5-14.5)
[2017-10-22 06:06] LABS: ANION GAP 11 (8-16); BLOOD UREA NITROGEN 9 mg/dl (7-20); CARBON DIOXIDE 32 mmol/L (21-31); CHLORIDE 103 mmol/L (97-110); CREATININE 1.45 mg/dl (0.61-1.24); GLUCOSE 113 mg/dl (70-220); POTASSIUM 4.6 mmol/L (3.5-5.1); SODIUM 141 mmol/L (135-144)
[2017-10-22] MEDS: SOD CHLORIDE 0.9% 100 ML (08:38)
[2017-10-22] MEDS: IODIXANOL LOCM 100 ML BTL (08:38)
[2017-10-22] MEDS: ENOXAPARIN 80 MG/0.8 ML SYG SC (09:00)
[2017-10-22] MEDS: MULTIVITAMINS THERAPEUTIC TAB PO (09:20)
[2017-10-22] MEDS: OXYBUTYNIN 5 MG TAB PO ×2 (09:21→20:48)
[2017-10-22] MEDS: DILTIAZEM 30 MG TAB PO ×4 (09:21→20:49)
[2017-10-22] MEDS: BUSPIRONE 5 MG TAB PO ×2 (09:21→20:48)
[2017-10-22] MEDS: FINASTERIDE 5 MG TAB PO (09:21)
[2017-10-22] MEDS ORDERED: LACTULOSE 30ML CUP PO (13:00)
[2017-10-22] MEDS: LACTULOSE 30ML CUP PO ×2 (13:06→20:48)
[2017-10-22 13:24] LABS: ADD UMIC YES; UR ASCORBIC ACID NEGATIVE (NEGATIVE); UR BILIRUBIN (Dip) NEGATIVE (NEGATIVE); UR BLOOD (Dip) NEGATIVE (NEGATIVE); UR CLARITY CLEAR (CLEAR); UR COLOR YELLOW (YELLOW); UR GLUCOSE (Dip) NEGATIVE (NEGATIVE); UR KETONES (Dip) NEGATIVE (NEGATIVE); UR LEUKOCYTE ESTERASE (Dip) NEGATIVE Leu/ul (NEGATIVE); UR NITRITE (Dip) NEGATIVE (NEGATIVE); UR RBC 1 /HPF (0-5); UR SPECIFIC GRAVITY (Dip) 1.027 (1.003-1.030); UR TOTAL PROTEIN (Dip) 1+ mg/dl (NEGATIVE); UR UROBILINOGEN (Dip) NEGATIVE (NEGATIVE); UR WBC 3 /HPF (0-5)
[2017-10-22] MEDS: SOD CHLORIDE 0.9% 1,000 ML IV (15:17)
[2017-10-22] MEDS: NA PHOSPHATE/BIPHOS 133 ML ENEMA PR (15:17)
[2017-10-22] MEDS: DOCUSATE SODIUM 100 MG CAP PO (20:49)
[2017-10-23] MEDS: HYDROmorphONE 1 MG/ML SYG IV ×6 (02:22→23:33)
[2017-10-23] MEDS: SOD CHLORIDE 0.9% 1,000 ML IV ×2 (04:55→18:55)
[2017-10-23 05:35] LABS: ANION GAP 12 (8-16); BLOOD UREA NITROGEN 10 mg/dl (7-20); CALCIUM 9.7 mg/dl (8.4-10.2); CARBON DIOXIDE 32 mmol/L (21-31); CHLORIDE 103 mmol/L (97-110); CREATININE 1.45 mg/dl (0.61-1.24); GLUCOSE 106 mg/dl (70-220); POTASSIUM 4.5 mmol/L (3.5-5.1); SODIUM 142 mmol/L (135-144)
[2017-10-23 05:42] LABS: INR 1.03; PROTIME 13.6 Sec (11.9-14.9); PT RATIO 1.1
[2017-10-23 05:43] LABS: PARTIAL THROMBOPLASTIN TIME 29.5 Sec (25.0-35.0)
[2017-10-23] MEDS: PANTOPRAZOLE 40 MG INJ IV (06:11)
[2017-10-23] MEDS: AMPICILLIN/SULB 1.5GM/NS (PMX) 50 ML IVPB ×3 (06:11→22:04)
[2017-10-23] MEDS ORDERED: CEFAZOLIN 1 GM INJ (07:00)
[2017-10-23] MEDS ORDERED: SUCCINYLCHOLINE CHLORIDE 100 MG/5 ML SYG IV (07:00)
[2017-10-23] MEDS: DILTIAZEM 30 MG TAB PO ×4 (09:00→20:28)
[2017-10-23] MEDS: FINASTERIDE 5 MG TAB PO (09:00)
[2017-10-23] MEDS: LACTULOSE 30ML CUP PO ×2 (09:00→20:28)
[2017-10-23] MEDS: MULTIVITAMINS THERAPEUTIC TAB PO (09:00)
[2017-10-23] MEDS: DOCUSATE SODIUM 100 MG CAP PO ×2 (09:00→20:28)
[2017-10-23] MEDS: ENOXAPARIN 80 MG/0.8 ML SYG SC (09:00)
[2017-10-23] MEDS: BUSPIRONE 5 MG TAB PO ×2 (09:00→20:28)
[2017-10-23] MEDS ORDERED: PROPOFOL 20 ML (12:16)
[2017-10-23] MEDS ORDERED: NEOSTIGMINE 3 MG/3 ML SYRINGE (12:16)
[2017-10-23] MEDS ORDERED: FENTAnyl 50 MCG/ML VIAL (12:16)
[2017-10-23] MEDS ORDERED: GLYCOPYRROLATE 0.4 MG INJ (12:16)
[2017-10-23] MEDS ORDERED: MIDAZOLAM 1 MG/ML 2 ML INJ (12:16)
[2017-10-23] MEDS ORDERED: LIDOCAINE 2% (SDV) 5 ML INJ (12:16)
[2017-10-23] MEDS ORDERED: ROCURONIUM 50 MG INJ (12:16)
[2017-10-23] MEDS ORDERED: ONDANSETRON 4 MG INJ (12:17)
[2017-10-23] MEDS ORDERED: DEXAMETHASONE 4 MG/ML 1 ML INJ (12:17)
[2017-10-23] MEDS ORDERED: IOHEXOL 300MG/ML 30 ML BTL (12:17)
[2017-10-23] MEDS: INDOMETHACIN 50 MG SUPP PR ×2 (12:40)
[2017-10-23 12:46] LABS: PROSTATE SPECIFIC ANTIGEN 23.9 ng/ml (0.0-4.0)
[2017-10-23] MEDS ORDERED: LABETALOL HCL 20MG INJ (12:58)
[2017-10-23] MEDS: TAMSULOSIN (SR) 0.4 MG CAP PO (20:28)
[2017-10-24] MEDS: HYDROmorphONE 1 MG/ML SYG IV ×5 (03:30→19:49)
[2017-10-24 05:07] LABS: WHITE BLOOD COUNT 4.3 10^3/ul (4.8-10.8)
[2017-10-24 05:07] LABS: ADD MAN DIFF? NO; BASOPHILS % 0.2 % (0.0-2.0); HEMATOCRIT 35.6 % (42.0-52.0); HEMOGLOBIN 11.3 g/dl (14.0-18.0); LYMPHOCYTES # 0.8 10^3/ul (0.8-2.9); LYMPHOCYTES % 19.8 % (15.0-51.0); MEAN CORPUSCULAR HEMOGLOBIN 26.7 pg (29.0-33.0); MEAN CORPUSCULAR HGB CONC 31.7 g/dl (32.0-37.0); MONOCYTE # 0.5 10^3/ul (0.3-0.9); NEUTROPHIL # 2.9 10^3/ul (1.6-7.5); NEUTROPHILS % 67.8 % (39.0-77.0); PLATELET COUNT 328 10^3/UL (140-415); RED BLOOD COUNT 4.24 10^6/ul (4.70-6.10); RED CELL DISTRIBUTION WIDTH 15.3 % (11.5-14.5)
[2017-10-24] MEDS: PANTOPRAZOLE 40 MG INJ IV (05:35)
[2017-10-24] MEDS: AMPICILLIN/SULB 1.5GM/NS (PMX) 50 ML IVPB ×3 (05:35→22:44)
[2017-10-24 05:53] LABS: ALANINE AMINOTRANSFERASE 30 IU/L (13-69); ALBUMIN 3.1 g/dl (3.3-4.9); ALBUMIN/GLOBULIN RATIO 0.72; ALKALINE PHOSPHATASE 116 IU/L (42-121); ANION GAP 10 (8-16); ASPARTATE AMINO TRANSFERASE 29 IU/L (15-46); BILIRUBIN,INDIRECT 0.2 mg/dl (0-1.1); BILIRUBIN,TOTAL 0.2 mg/dl (0.2-1.3); BLOOD UREA NITROGEN 12 mg/dl (7-20); CALCIUM 9.1 mg/dl (8.4-10.2); CARBON DIOXIDE 27 mmol/L (21-31); CHLORIDE 107 mmol/L (97-110); CREATININE 1.34 mg/dl (0.61-1.24); GLUCOSE 147 mg/dl (70-220); POTASSIUM 4.7 mmol/L (3.5-5.1); SODIUM 139 mmol/L (135-144); TOTAL PROTEIN 7.4 g/dl (6.1-8.1)
[2017-10-24] MEDS: SOD CHLORIDE 0.9% 1,000 ML IV ×2 (07:05→20:56)
[2017-10-24] MEDS: FINASTERIDE 5 MG TAB PO (08:56)
[2017-10-24] MEDS: BUSPIRONE 5 MG TAB PO ×2 (08:56→20:56)
[2017-10-24] MEDS: MULTIVITAMINS THERAPEUTIC TAB PO (08:57)
[2017-10-24] MEDS: DILTIAZEM 30 MG TAB PO ×4 (08:57→20:57)
[2017-10-24] MEDS: ENOXAPARIN 80 MG/0.8 ML SYG SC (08:59)
[2017-10-24] MEDS: LACTULOSE 30ML CUP PO ×2 (08:59→20:57)
[2017-10-24] MEDS: DOCUSATE SODIUM 100 MG CAP PO ×2 (08:59→20:56)
[2017-10-24] MEDS: TAMSULOSIN (SR) 0.4 MG CAP PO (20:56)
[2017-10-25] MEDS: HYDROmorphONE 1 MG/ML SYG IV ×6 (00:22→22:03)
[2017-10-25] MEDS: PANTOPRAZOLE 40 MG INJ IV (05:42)
[2017-10-25] MEDS: AMPICILLIN/SULB 1.5GM/NS (PMX) 50 ML IVPB ×3 (05:43→21:11)
[2017-10-25] MEDS: BUSPIRONE 5 MG TAB PO ×2 (08:43→20:14)
[2017-10-25] MEDS: DILTIAZEM 30 MG TAB PO ×4 (08:44→20:14)
[2017-10-25] MEDS: DOCUSATE SODIUM 100 MG CAP PO ×2 (08:45→20:17)
[2017-10-25] MEDS: FINASTERIDE 5 MG TAB PO (08:46)
[2017-10-25] MEDS: MULTIVITAMINS THERAPEUTIC TAB PO (08:46)
[2017-10-25] MEDS: LACTULOSE 30ML CUP PO ×2 (08:46→20:17)
[2017-10-25] MEDS: ENOXAPARIN 80 MG/0.8 ML SYG SC (08:49)
[2017-10-25] MEDS: SOD CHLORIDE 0.9% 1,000 ML IV ×2 (09:40→12:02)
[2017-10-25] MEDS: TAMSULOSIN (SR) 0.4 MG CAP PO (20:14)
[2017-10-26] MEDS: HYDROmorphONE 1 MG/ML SYG IV ×6 (02:07→21:03)
[2017-10-26] MEDS: SOD CHLORIDE 0.9% 1,000 ML IV (05:22)
[2017-10-26] MEDS: AMPICILLIN/SULB 1.5GM/NS (PMX) 50 ML IVPB ×2 (05:23→13:50)
[2017-10-26] MEDS: PANTOPRAZOLE 40 MG INJ IV (05:24)
[2017-10-26] MEDS: ENOXAPARIN 80 MG/0.8 ML SYG SC (09:00)
[2017-10-26] MEDS: DOCUSATE SODIUM 100 MG CAP PO ×2 (09:51→21:02)
[2017-10-26] MEDS: DILTIAZEM 30 MG TAB PO ×4 (09:51→21:02)
[2017-10-26] MEDS: LACTULOSE 30ML CUP PO ×2 (09:51→21:02)
[2017-10-26] MEDS: FINASTERIDE 5 MG TAB PO (09:51)
[2017-10-26] MEDS: BUSPIRONE 5 MG TAB PO ×2 (09:51→21:02)
[2017-10-26] MEDS: MULTIVITAMINS THERAPEUTIC TAB PO (09:51)
[2017-10-26] MEDS: TAMSULOSIN (SR) 0.4 MG CAP PO (21:02)
[2017-10-27] MEDS: SOD CHLORIDE 0.9% 1,000 ML IV ×3 (00:47→20:40)
[2017-10-27] MEDS: HYDROmorphONE 1 MG/ML SYG IV ×6 (00:47→22:11)
[2017-10-27] MEDS: PANTOPRAZOLE 40 MG INJ IV (05:00)
[2017-10-27] MEDS: ENOXAPARIN 80 MG/0.8 ML SYG SC (09:00)
[2017-10-27] MEDS: MULTIVITAMINS THERAPEUTIC TAB PO (09:23)
[2017-10-27] MEDS: DOCUSATE SODIUM 100 MG CAP PO ×2 (09:23→20:41)
[2017-10-27] MEDS: LACTULOSE 30ML CUP PO ×2 (09:23→20:40)
[2017-10-27] MEDS: BUSPIRONE 5 MG TAB PO ×2 (09:24→20:41)
[2017-10-27] MEDS: DILTIAZEM 30 MG TAB PO ×4 (09:24→20:41)
[2017-10-27] MEDS: FINASTERIDE 5 MG TAB PO (09:24)
[2017-10-27 12:16] LABS: ADD MAN DIFF? NO
[2017-10-27 12:20] LABS: WHITE BLOOD COUNT 4.4 10^3/ul (4.8-10.8)
[2017-10-27 12:20] LABS: BASOPHIL # 0.1 10^3/ul (0.0-0.1); BASOPHILS % 1.6 % (0.0-2.0); EOSINOPHILS # 0.2 10^3/ul (0.0-0.5); EOSINOPHILS % 3.9 % (0.0-7.0); HEMATOCRIT 35.7 % (42.0-52.0); HEMOGLOBIN 11.7 g/dl (14.0-18.0); LYMPHOCYTES # 1.7 10^3/ul (0.8-2.9); LYMPHOCYTES % 37.8 % (15.0-51.0); MEAN CORPUSCULAR HEMOGLOBIN 27.7 pg (29.0-33.0); MEAN CORPUSCULAR HGB CONC 32.8 g/dl (32.0-37.0); MEAN CORPUSCULAR VOLUME 84.6 fl (82.0-101.0); MEAN PLATELET VOLUME 11.5 fl (7.4-10.4); MONOCYTE # 0.8 10^3/ul (0.3-0.9); MONOCYTES % 18.7 % (0.0-11.0); NEUTROPHIL # 1.7 10^3/ul (1.6-7.5); NEUTROPHILS % 37.8 % (39.0-77.0); PLATELET COUNT 251 10^3/UL (140-415); RED BLOOD COUNT 4.22 10^6/ul (4.70-6.10); RED CELL DISTRIBUTION WIDTH 15.5 % (11.5-14.5)
[2017-10-27] MEDS: TAMSULOSIN (SR) 0.4 MG CAP PO (20:41)
[2017-10-28] MEDS: HYDROmorphONE 1 MG/ML SYG IV ×5 (02:21→21:54)
[2017-10-28] MEDS: PANTOPRAZOLE 40 MG INJ IV (05:41)
[2017-10-28] MEDS: ENOXAPARIN 80 MG/0.8 ML SYG SC (08:37)
[2017-10-28] MEDS: LACTULOSE 30ML CUP PO ×2 (09:18→20:51)
[2017-10-28] MEDS: FINASTERIDE 5 MG TAB PO (09:19)
[2017-10-28] MEDS: MULTIVITAMINS THERAPEUTIC TAB PO (09:19)
[2017-10-28] MEDS: DOCUSATE SODIUM 100 MG CAP PO ×2 (09:19→20:52)
[2017-10-28] MEDS: BUSPIRONE 5 MG TAB PO ×2 (09:20→20:51)
[2017-10-28] MEDS: DILTIAZEM 30 MG TAB PO ×4 (09:20→20:52)
[2017-10-28] MEDS: SOD CHLORIDE 0.9% 1,000 ML IV (10:07)
[2017-10-28] MEDS: TAMSULOSIN (SR) 0.4 MG CAP PO (20:52)
[2017-10-29] MEDS: SOD CHLORIDE 0.9% 1,000 ML IV ×3 (00:32→12:57)
[2017-10-29] MEDS: HYDROmorphONE 1 MG/ML SYG IV ×5 (02:58→23:48)
[2017-10-29] MEDS: PANTOPRAZOLE 40 MG INJ IV (05:11)
[2017-10-29] MEDS: FINASTERIDE 5 MG TAB PO (08:56)
[2017-10-29] MEDS: DOCUSATE SODIUM 100 MG CAP PO ×2 (08:56→21:07)
[2017-10-29] MEDS: BUSPIRONE 5 MG TAB PO ×2 (08:56→21:07)
[2017-10-29] MEDS: MULTIVITAMINS THERAPEUTIC TAB PO (08:56)
[2017-10-29] MEDS: LACTULOSE 30ML CUP PO ×3 (08:56→23:48)
[2017-10-29] MEDS: DILTIAZEM 30 MG TAB PO ×2 (08:57→12:53)
[2017-10-29] MEDS: ENOXAPARIN 80 MG/0.8 ML SYG SC (08:58)
[2017-10-29] MEDS: TAMSULOSIN (SR) 0.4 MG CAP PO (21:07)
[2017-10-30] MEDS: HYDROmorphONE 1 MG/ML SYG IV ×4 (04:18→22:22)
[2017-10-30] MEDS: PANTOPRAZOLE 40 MG INJ IV (05:06)
[2017-10-30] MEDS: LACTULOSE 30ML CUP PO ×3 (05:06→17:52)
[2017-10-30 05:41] LABS: ADD MAN DIFF? NO
[2017-10-30 05:50] LABS: BASOPHIL # 0.1 10^3/ul (0.0-0.1); BASOPHILS % 1.4 % (0.0-2.0); EOSINOPHILS # 0.5 10^3/ul (0.0-0.5); EOSINOPHILS % 9.3 % (0.0-7.0); HEMATOCRIT 35.7 % (42.0-52.0); HEMOGLOBIN 11.6 g/dl (14.0-18.0); LYMPHOCYTES # 1.9 10^3/ul (0.8-2.9); LYMPHOCYTES % 37.1 % (15.0-51.0); MEAN CORPUSCULAR HEMOGLOBIN 27.2 pg (29.0-33.0); MEAN CORPUSCULAR HGB CONC 32.5 g/dl (32.0-37.0); MEAN CORPUSCULAR VOLUME 83.6 fl (82.0-101.0); MEAN PLATELET VOLUME 11.9 fl (7.4-10.4); MONOCYTE # 0.9 10^3/ul (0.3-0.9); MONOCYTES % 18.3 % (0.0-11.0); NEUTROPHIL # 1.7 10^3/ul (1.6-7.5); NEUTROPHILS % 33.7 % (39.0-77.0); PLATELET COUNT 233 10^3/UL (140-415); RED BLOOD COUNT 4.27 10^6/ul (4.70-6.10); RED CELL DISTRIBUTION WIDTH 15.8 % (11.5-14.5)
[2017-10-30 05:50] LABS: WHITE BLOOD COUNT 5.2 10^3/ul (4.8-10.8)
[2017-10-30 06:09] LABS: ALANINE AMINOTRANSFERASE 34 IU/L (13-69); ALBUMIN 3.1 g/dl (3.3-4.9); ALBUMIN/GLOBULIN RATIO 0.73; ALKALINE PHOSPHATASE 125 IU/L (42-121); ANION GAP 9 (8-16); ASPARTATE AMINO TRANSFERASE 27 IU/L (15-46); BILIRUBIN,INDIRECT 0.1 mg/dl (0-1.1); BILIRUBIN,TOTAL 0.1 mg/dl (0.2-1.3); BLOOD UREA NITROGEN 9 mg/dl (7-20); CALCIUM 9.1 mg/dl (8.4-10.2); CARBON DIOXIDE 29 mmol/L (21-31); CHLORIDE 104 mmol/L (97-110); CREATININE 1.01 mg/dl (0.61-1.24); GLUCOSE 102 mg/dl (70-220); POTASSIUM 4.2 mmol/L (3.5-5.1); SODIUM 138 mmol/L (135-144); TOTAL PROTEIN 7.3 g/dl (6.1-8.1)
[2017-10-30 06:12] LABS: INR 0.99; PROTIME 13.2 Sec (11.9-14.9)
[2017-10-30] MEDS ORDERED: EPHEDrine SULFATE 50 MG/5 ML SYG (07:00)
[2017-10-30 07:02] LABS: ADD UMIC NO; UR ASCORBIC ACID NEGATIVE (NEGATIVE); UR BILIRUBIN (Dip) NEGATIVE (NEGATIVE); UR BLOOD (Dip) NEGATIVE (NEGATIVE); UR CLARITY CLEAR (CLEAR); UR COLOR YELLOW (YELLOW); UR GLUCOSE (Dip) NEGATIVE (NEGATIVE); UR KETONES (Dip) NEGATIVE (NEGATIVE); UR LEUKOCYTE ESTERASE (Dip) NEGATIVE Leu/ul (NEGATIVE); UR NITRITE (Dip) NEGATIVE (NEGATIVE); UR SPECIFIC GRAVITY (Dip) 1.012 (1.003-1.030); UR TOTAL PROTEIN (Dip) NEGATIVE (NEGATIVE); UR UROBILINOGEN (Dip) NEGATIVE (NEGATIVE)
[2017-10-30] MEDS: FINASTERIDE 5 MG TAB PO (08:44)
[2017-10-30] MEDS: BUSPIRONE 5 MG TAB PO ×2 (08:44→21:59)
[2017-10-30] MEDS: DOCUSATE SODIUM 100 MG CAP PO ×2 (08:44→21:00)
[2017-10-30] MEDS: MULTIVITAMINS THERAPEUTIC TAB PO (08:44)
[2017-10-30] MEDS: ENOXAPARIN 80 MG/0.8 ML SYG SC (08:45)
[2017-10-30] MEDS ORDERED: SUCCINYLCHOLINE CHLORIDE 100 MG/5 ML SYG IV (19:00)
[2017-10-30] MEDS ORDERED: NEOSTIGMINE 3 MG/3 ML SYRINGE (19:00)
[2017-10-30] MEDS ORDERED: PROPOFOL 20 ML (19:00)
[2017-10-30] MEDS ORDERED: LIDOCAINE 2% (SDV) 5 ML INJ (19:00)
[2017-10-30] MEDS ORDERED: ROCURONIUM 50 MG INJ (19:00)
[2017-10-30] MEDS ORDERED: GLYCOPYRROLATE 0.4 MG INJ ×2 (19:00→19:36)
[2017-10-30] MEDS ORDERED: MEPERIDINE 100 MG INJ (19:00)
[2017-10-30] MEDS ORDERED: CIPROFLOXACIN 400MG/D5W 200 ML (19:10)
[2017-10-30] MEDS ORDERED: hydrALAzine 20 MG INJ IV (20:00)
[2017-10-30] MEDS ORDERED: MEPERIDINE 25 MG INJ IV (20:00)
[2017-10-30] MEDS ORDERED: EPHEDrine SULFATE 50 MG/5 ML SYG IV (20:00)
[2017-10-30] MEDS ORDERED: OXYCODONE/ACETAMINOPHEN (5/325) TAB PO ×2 (20:00)
[2017-10-30] MEDS ORDERED: DIPHENHYDRAMINE 50 MG INJ IV (20:00)
[2017-10-30] MEDS ORDERED: HYDROmorphONE 1 MG/5 ML IV SYRINGE IV ×2 (20:00→21:28)
[2017-10-30] MEDS ORDERED: METOCLOPRAMIDE 10 MG INJ IV (20:00)
[2017-10-30] MEDS ORDERED: MIDAZOLAM 1 MG/ML 2 ML INJ IV (20:00)
[2017-10-30] MEDS ORDERED: FENTAnyl 50 MCG/ML VIAL IV ×3 (20:00)
[2017-10-30] MEDS ORDERED: LABETALOL HCL 20MG INJ IV (20:00)
[2017-10-30] MEDS: ONDANSETRON 4 MG INJ IV (21:04)
[2017-10-30] MEDS: HYDROmorphONE 1 MG/5 ML IV SYRINGE IV ×3 (21:04→21:29)
[2017-10-31] MEDS: LACTULOSE 30ML CUP PO ×4 (00:28→18:31)
[2017-10-31] MEDS: HYDROmorphONE 1 MG/ML SYG IV ×5 (02:38→20:02)
[2017-10-31 05:09] LABS: ADD MAN DIFF? NO
[2017-10-31 05:12] LABS: BASOPHIL # 0.1 10^3/ul (0.0-0.1); BASOPHILS % 1.3 % (0.0-2.0); EOSINOPHILS # 0.5 10^3/ul (0.0-0.5); EOSINOPHILS % 7.2 % (0.0-7.0); HEMOGLOBIN 9.5 g/dl (14.0-18.0); LYMPHOCYTES # 2.4 10^3/ul (0.8-2.9); LYMPHOCYTES % 33.8 % (15.0-51.0); MEAN CORPUSCULAR HEMOGLOBIN 27.5 pg (29.0-33.0); MEAN CORPUSCULAR HGB CONC 32.8 g/dl (32.0-37.0); MEAN CORPUSCULAR VOLUME 84.1 fl (82.0-101.0); MEAN PLATELET VOLUME 11.8 fl (7.4-10.4); MONOCYTE # 1.1 10^3/ul (0.3-0.9); MONOCYTES % 15.1 % (0.0-11.0); NEUTROPHIL # 2.9 10^3/ul (1.6-7.5); NEUTROPHILS % 42.2 % (39.0-77.0); PLATELET COUNT 283 10^3/UL (140-415); RED BLOOD COUNT 3.45 10^6/ul (4.70-6.10)
[2017-10-31] MEDS: PANTOPRAZOLE 40 MG INJ IV (05:32)
[2017-10-31 05:49] LABS: CALCIUM 9.2 mg/dl (8.4-10.2)
[2017-10-31 05:49] LABS: MAGNESIUM 1.7 mg/dl (1.7-2.5)
[2017-10-31] MEDS: DOCUSATE SODIUM 100 MG CAP PO ×2 (09:00→21:00)
[2017-10-31] MEDS: ENOXAPARIN 80 MG/0.8 ML SYG SC (09:00)
[2017-10-31] MEDS: FINASTERIDE 5 MG TAB PO (09:21)
[2017-10-31] MEDS: BUSPIRONE 5 MG TAB PO ×2 (09:21→20:14)
[2017-10-31] MEDS: MULTIVITAMINS THERAPEUTIC TAB PO (09:22)
[2017-10-31 21:24] LABS: ANION GAP 13 (8-16); BLOOD UREA NITROGEN 12 mg/dl (7-20); CALCIUM 9.2 mg/dl (8.4-10.2); CARBON DIOXIDE 26 mmol/L (21-31); CHLORIDE 101 mmol/L (97-110); CREATININE 1.06 mg/dl (0.61-1.24); GLUCOSE 140 mg/dl (70-220); SODIUM 136 mmol/L (135-144)
[2017-11-01] MEDS: LACTULOSE 30ML CUP PO ×4 (00:08→17:36)
[2017-11-01] MEDS: HYDROmorphONE 1 MG/ML SYG IV ×6 (00:08→21:25)
[2017-11-01] MEDS: PANTOPRAZOLE 40 MG INJ IV (06:26)
[2017-11-01] MEDS: FINASTERIDE 5 MG TAB PO (09:20)
[2017-11-01] MEDS: DOCUSATE SODIUM 100 MG CAP PO ×2 (09:20→21:00)
[2017-11-01] MEDS: MULTIVITAMINS THERAPEUTIC TAB PO (09:20)
[2017-11-01] MEDS: FERROUS SULFATE (EC) 325 MG TAB PO ×2 (09:22→21:24)
[2017-11-01] MEDS: BUSPIRONE 5 MG TAB PO ×2 (09:22→21:24)
[2017-11-02] MEDS: LACTULOSE 30ML CUP PO ×4 (01:23→12:47)
[2017-11-02] MEDS: HYDROmorphONE 1 MG/ML SYG IV ×4 (01:24→14:48)
[2017-11-02 05:24] LABS: ADD MAN DIFF? NO
[2017-11-02] MEDS: PANTOPRAZOLE 40 MG INJ IV (05:30)
[2017-11-02 05:33] LABS: WHITE BLOOD COUNT 5.8 10^3/ul (4.8-10.8)
[2017-11-02 05:33] LABS: BASOPHIL # 0.1 10^3/ul (0.0-0.1); EOSINOPHILS # 0.4 10^3/ul (0.0-0.5); EOSINOPHILS % 6.5 % (0.0-7.0); HEMATOCRIT 36.1 % (42.0-52.0); HEMOGLOBIN 11.8 g/dl (14.0-18.0); LYMPHOCYTES # 2.1 10^3/ul (0.8-2.9); LYMPHOCYTES % 35.1 % (15.0-51.0); MEAN CORPUSCULAR HEMOGLOBIN 27.5 pg (29.0-33.0); MEAN CORPUSCULAR HGB CONC 32.7 g/dl (32.0-37.0); MEAN CORPUSCULAR VOLUME 84.1 fl (82.0-101.0); MEAN PLATELET VOLUME 11.2 fl (7.4-10.4); MONOCYTE # 1.1 10^3/ul (0.3-0.9); MONOCYTES % 19.3 % (0.0-11.0); NEUTROPHIL # 2.2 10^3/ul (1.6-7.5); NEUTROPHILS % 37.6 % (39.0-77.0); PLATELET COUNT 254 10^3/UL (140-415); RED BLOOD COUNT 4.29 10^6/ul (4.70-6.10); RED CELL DISTRIBUTION WIDTH 15.8 % (11.5-14.5)
[2017-11-02] MEDS: BUSPIRONE 5 MG TAB PO (09:58)
[2017-11-02] MEDS: FERROUS SULFATE (EC) 325 MG TAB PO (10:02)
[2017-11-02] MEDS: DOCUSATE SODIUM 100 MG CAP PO (10:02)
[2017-11-02] MEDS: MULTIVITAMINS THERAPEUTIC TAB PO (10:03)
[2017-11-02] MEDS: FINASTERIDE 5 MG TAB PO (10:03)
== END 2017-11-02 17:00 | disposition home or self-care (01) | DRG 853 ==
LOC: MS1 10-10 14:12 → E/R 11:58 → MS1 19:42
PROC: 0F9030Z Drainage of Liver with Drainage Device, Percutaneous Approach (ICD-10-PCS; principal; 2017-10-14 12:58)
PROC: 0VT08ZZ Resection of Prostate, Via Natural or Artificial Opening Endoscopic (ICD-10-PCS; 2017-10-14 12:58)
PROC: 02H633Z Insertion of Infusion Device into Right Atrium, Percutaneous Approach (ICD-10-PCS; 2017-10-14 12:58)
PROC: 0FPB8DZ Removal of Intraluminal Device from Hepatobiliary Duct, Via Natural or Artificial Opening Endoscopic (ICD-10-PCS; 2017-10-14 12:58)
PROC: 0D798ZZ Dilation of Duodenum, Via Natural or Artificial Opening Endoscopic (ICD-10-PCS; 2017-10-14 12:58)
PROC: 0D798ZZ Dilation of Duodenum, Via Natural or Artificial Opening Endoscopic (ICD-10-PCS; 2017-10-14 12:58)
PROC: 0DB98ZX Excision of Duodenum, Via Natural or Artificial Opening Endoscopic, Diagnostic (ICD-10-PCS; 2017-10-14 12:58)
PROC: 0F768DZ Dilation of Left Hepatic Duct with Intraluminal Device, Via Natural or Artificial Opening Endoscopic (ICD-10-PCS; 2017-10-14 12:58)
PROC: 0F758DZ Dilation of Right Hepatic Duct with Intraluminal Device, Via Natural or Artificial Opening Endoscopic (ICD-10-PCS; 2017-10-14 12:58)
PROC: 0FP0X0Z Removal of Drainage Device from Liver, External Approach (ICD-10-PCS; 2017-10-14 12:58)
PROC: 0T9B70Z Drainage of Bladder with Drainage Device, Via Natural or Artificial Opening (ICD-10-PCS; 2017-10-14 12:58)
DX: A41.9 Sepsis, unspecified organism (principal); K85.92 Acute pancreatitis with infected necrosis, unspecified; K75.0 Abscess of liver; N17.9 Acute kidney failure, unspecified; K86.1 Other chronic pancreatitis; K31.5 Obstruction of duodenum; N13.8 Other obstructive and reflux uropathy; K80.00 Calculus of gallbladder with acute cholecystitis without obstruction; F17.210 Nicotine dependence, cigarettes, uncomplicated; F32.9 Major depressive disorder, single episode, unspecified; I10 Essential (primary) hypertension; K29.70 Gastritis, unspecified, without bleeding; N40.1 Benign prostatic hyperplasia with lower urinary tract symptoms; R33.8 Other retention of urine; R39.2 Extrarenal uremia; Z85.71 Personal history of Hodgkin lymphoma; Z96.89 Presence of other specified functional implants; Z90.81 Acquired absence of spleen
CPT/HCPCS: 36415; 36569; 36589; 71045; 74176; 74177; 74178; 74181; 74240; 74330; 76937; 77012; 78226; 80048; 80053; 81001; 81003; 82040; 82105; 82150; 82310; 82378; 83690; 83735; 84153; 84154; 85025; 85610; 85651; 85730; 86301; 87070; 87086; 88305; 93005; 96361; 96374; 96375; 99285-25

== ENCOUNTER 2018-08-30 11:44 | Emergency (ER) | payer MEDICARE, OTHER ==
[2018-08-30] MEDS: predniSONE 20 MG TAB PO (12:07)
== END 2018-08-30 16:02 | disposition home or self-care (01) ==
LOC: E/R 11:44
DX: G51.0 Bell's palsy (principal); Z87.891 Personal history of nicotine dependence
CPT/HCPCS: 70450; 99284

== ENCOUNTER 2018-09-11 12:39 | Inpatient (IN) | payer MEDICARE, OTHER ==
[2018-09-11] MEDS ORDERED: ONDANSETRON 4 MG INJ IV (15:30)
[2018-09-11] MEDS ORDERED: ACETAMINOPHEN 325 MG TAB PO (15:30)
[2018-09-11] MEDS: ONDANSETRON 4 MG INJ IV (15:55)
[2018-09-11] MEDS: FAMOTIDINE 20 MG INJ IV (15:55)
[2018-09-11] MEDS: morphine 2 MG INJ IV ×3 (15:55→23:16)
[2018-09-11] MEDS: SOD CHLORIDE 0.9% 250 ML IV (15:56)
[2018-09-11 16:01] LABS: ADD MAN DIFF? NO
[2018-09-11 16:02] LABS: HEMATOCRIT 55.5 % (42.0-52.0); MEAN CORPUSCULAR HEMOGLOBIN 27.7 pg (29.0-33.0); MEAN CORPUSCULAR HGB CONC 32.4 g/dl (32.0-37.0); MEAN CORPUSCULAR VOLUME 85.5 fl (82.0-101.0); MEAN PLATELET VOLUME 10.6 fl (7.4-10.4); PLATELET COUNT 250 10^3/UL (140-415); RED BLOOD COUNT 6.49 10^6/ul (4.70-6.10); RED CELL DISTRIBUTION WIDTH 16.7 % (11.5-14.5)
[2018-09-11 16:02] LABS: WHITE BLOOD COUNT 6.5 10^3/ul (4.8-10.8)
[2018-09-11 16:16] LABS: ADD UMIC YES; UR ASCORBIC ACID NEGATIVE (NEGATIVE); UR BACTERIA FEW /HPF (NONE SEEN); UR BILIRUBIN (Dip) NEGATIVE (NEGATIVE); UR BLOOD (Dip) 2+ mg/dL (NEGATIVE); UR CLARITY CLOUDY (CLEAR); UR COLOR AMBER (YELLOW); UR GLUCOSE (Dip) NEGATIVE (NEGATIVE); UR KETONES (Dip) TRACE mg/dL (NEGATIVE); UR LEUKOCYTE ESTERASE (Dip) NEGATIVE Leu/ul (NEGATIVE); UR MUCUS FEW /HPF (NONE SEEN); UR NITRITE (Dip) NEGATIVE (NEGATIVE); UR RBC 26 /HPF (0-5); UR SPECIFIC GRAVITY (Dip) 1.018 (1.003-1.030); UR TOTAL PROTEIN (Dip) 2+ mg/dl (NEGATIVE); UR UROBILINOGEN (Dip) NEGATIVE (NEGATIVE); UR WBC 8 /HPF (0-5)
[2018-09-11 16:22] LABS: PARTIAL THROMBOPLASTIN TIME 28.6 Sec (23.0-35.0); PROTIME 13.3 Sec (11.9-14.9)
[2018-09-11] MEDS: SOD CHLORIDE 0.9% 1,000 ML IV (16:23)
[2018-09-11 16:32] LABS: ALANINE AMINOTRANSFERASE 19 IU/L (13-69); ALBUMIN 4.5 g/dl (3.3-4.9); ALBUMIN/GLOBULIN RATIO 0.83; ALKALINE PHOSPHATASE 130 IU/L (42-121); ANION GAP 12 (5-13); ASPARTATE AMINO TRANSFERASE 29 IU/L (15-46); BILIRUBIN,INDIRECT 0.7 mg/dl (0-1.1); BILIRUBIN,TOTAL 0.7 mg/dl (0.2-1.3); BLOOD UREA NITROGEN 32 mg/dl (7-20); CALCIUM 10.5 mg/dl (8.4-10.2); CARBON DIOXIDE 35 mmol/L (21-31); CHLORIDE 95 mmol/L (97-110); CREATININE 2.33 mg/dl (0.61-1.24); Estimated GFR 34 mL/min (>60); GLUCOSE 97 mg/dl (70-220); LIPASE 162 U/L (23-300); SODIUM 142 mmol/L (135-144); TOTAL PROTEIN 9.9 g/dl (6.1-8.1)
[2018-09-11 16:44] LABS: TROPONIN-I < 0.012 ng/ml (0.000-0.120)
[2018-09-11] MEDS ORDERED: oxyCODONE 15 MG TAB PO (17:30)
[2018-09-11 17:47] LABS: ANISOCYTOSIS 1+ (0-0); EOSINOPHILS % (M) 1 % (0-7); LYMPHOCYTES % (M) 16 % (15-51); MONOCYTE #M 1.4 10^3/ul (0.3-0.9); MONOCYTES % (M) 22 % (0-11); PLATELET ESTIMATE NORMAL; POIKILOCYTOSIS 1+ (0-0); SEGMENTED NEUTROPHILS (M) % 61 % (39-77); SMUDGE%M 18 % (0-0)
[2018-09-11] MEDS: DEXTROSE 5%-0.9% NACL 1,000 ML IV (20:12)
[2018-09-11] MEDS: OCULAR LUBRICANT 3.5 GM OPH OINT BOTH EYES (22:06)
[2018-09-12] MEDS: morphine 2 MG INJ IV ×3 (03:22→23:34)
[2018-09-12] MEDS: DEXTROSE 5%-0.9% NACL 1,000 ML IV ×3 (07:00→23:33)
[2018-09-12] MEDS: ENOXAPARIN 30 MG/0.3 ML SYG SC (09:00)
[2018-09-12] MEDS: morphine 2 MG INJ IM (11:36)
[2018-09-12 13:28] LABS: ADD MAN DIFF? NO
[2018-09-12 13:47] LABS: WHITE BLOOD COUNT 5.5 10^3/ul (4.8-10.8)
[2018-09-12 13:47] LABS: BASOPHIL # 0.1 10^3/ul (0.0-0.1); BASOPHILS % 0.9 % (0.0-2.0); EOSINOPHILS # 0.1 10^3/ul (0.0-0.5); EOSINOPHILS % 2.2 % (0.0-7.0); HEMATOCRIT 55.1 % (42.0-52.0); HEMOGLOBIN 17.8 g/dl (14.0-18.0); LYMPHOCYTES # 1.6 10^3/ul (0.8-2.9); LYMPHOCYTES % 28.6 % (15.0-51.0); MEAN CORPUSCULAR HGB CONC 32.3 g/dl (32.0-37.0); MEAN CORPUSCULAR VOLUME 86.8 fl (82.0-101.0); MEAN PLATELET VOLUME 10.9 fl (7.4-10.4); MONOCYTE # 0.8 10^3/ul (0.3-0.9); NEUTROPHIL # 2.9 10^3/ul (1.6-7.5); NEUTROPHILS % 52.9 % (39.0-77.0); NUCLEATED RED BLOOD CELLS% 0.4 /100WBC (0.0-0.0); PLATELET COUNT 225 10^3/UL (140-415); POSITIVE DIFF @See below; RED BLOOD COUNT 6.35 10^6/ul (4.70-6.10); RED CELL DISTRIBUTION WIDTH 16.4 % (11.5-14.5)
[2018-09-12 13:58] LABS: ANION GAP 11 (5-13); BLOOD UREA NITROGEN 22 mg/dl (7-20); CALCIUM 9.5 mg/dl (8.4-10.2); CARBON DIOXIDE 28 mmol/L (21-31); CHLORIDE 102 mmol/L (97-110); CREATININE 1.65 mg/dl (0.61-1.24); Estimated GFR 51 mL/min (>60); GLUCOSE 110 mg/dl (70-220); POTASSIUM 4.7 mmol/L (3.5-5.1); SODIUM 141 mmol/L (135-144)
[2018-09-12] MEDS: ONDANSETRON (ODT) 4 MG TAB ODT (19:46)
[2018-09-13] MEDS: morphine 2 MG INJ IV ×2 (05:51→11:33)
[2018-09-13] MEDS: PANTOPRAZOLE (EC) 40 MG TAB PO (05:51)
[2018-09-13] MEDS: ENOXAPARIN 30 MG/0.3 ML SYG SC (09:00)
== END 2018-09-13 13:50 | disposition home or self-care (01) | DRG 392 ==
LOC: FTE 12:39 → PP2 15:13
DX: R10.9 Unspecified abdominal pain (principal); N28.9 Disorder of kidney and ureter, unspecified; G51.0 Bell's palsy; K52.9 Noninfective gastroenteritis and colitis, unspecified; E86.0 Dehydration
CPT/HCPCS: 36415; 71046; 80048; 80053; 81001; 83690; 84484; 85025; 85610; 85730; 87086; 93005; 99285-25; G0378